=== PATIENT | female | born 1990 | race Caucasian/White ===

== ENCOUNTER 2019-12-11 16:36 | Outpatient (CLI) | payer MEDICAID | END 2019-12-11 16:37 | disposition home or self-care (01) | LOC: COV 16:36 | PROVIDERS: ATTEND Family Medicine | DX: R05 Cough (principal); J02.9 Acute pharyngitis, unspecified; R09.81 Nasal congestion; Z20.828 Contact with and (suspected) exposure to other viral communicable diseases ==